=== PATIENT | male | born 1990 | race Caucasian/White ===

== ENCOUNTER 2022-01-16 15:23 | Outpatient (CLI) | payer BC, SELFPAY ==
[2022-01-16 21:47] LABS: Chloride* 105 mmol/L (96-114); Sodium* 140 mmol/L (135-149)
[2022-01-16 21:48] LABS: Potassium* 5.6 mmol/L (3.6-5.1)
[2022-01-16 21:50] LABS: Alanine Aminotransferase* 21 U/L (4-50); Alkaline Phosphatase* 91 U/L (40-150); Aspartate Amino Transferase* 21 U/L (12-35); Bilirubin Total* 0.2 mg/dL (0.1-1.5); Blood Urea Nitrogen* 18 mg/dL (5-24); Carbon Dioxide* 22 mmol/L (20-32); Estimated Glomerular Filt Rate 103 ml/min; Glucose* 116 mg/dL (60-115); Total Protein* 7.4 g/dL (6.0-8.3)
[2022-01-16 21:51] LABS: Calcium* 9.9 mg/dL (8.4-10.6)
[2022-01-16 22:22] LABS: TSH With Reflex to FT4* 0.925 uIU/mL (0.270-4.200)
[2022-01-20 16:55] LABS: Sex Hormone Binding Globulin 50 nmol/L (17-56); Testosterone, Adult Male 463 ng/dL (300-1080); Testosterone, Free Calculation 68 pg/mL (47-244); Testosterone, Percentage Free 1.5 % (1.6-2.9)
== END 2022-01-16 15:24 | disposition home or self-care (01) ==
PROVIDERS: PCP Family Medicine; Visit Provider Family Medicine
DX: Z00.00 Encounter for general adult medical examination without abnormal findings (principal); E07.9 Disorder of thyroid, unspecified; R68.82 Decreased libido; F41.9 Anxiety disorder, unspecified
CPT/HCPCS: 80053; 84270; 84402; 84403; 84443

== ENCOUNTER 2023-02-12 10:25 | Outpatient (CLI) | payer BC, SELFPAY | END 2023-02-12 10:26 | disposition home or self-care (01) | LOC: NFLDREF 02-16 12:17 | PROVIDERS: PCP Family Medicine; Referring Provider Family Medicine; Visit Provider Family Medicine | DX: I10 Essential (primary) hypertension (principal); R73.9 Hyperglycemia, unspecified; F41.9 Anxiety disorder, unspecified; F90.9 Attention-deficit hyperactivity disorder, unspecified type | CPT/HCPCS: 80053; 80061; 84443 ==

== ENCOUNTER 2024-04-06 09:39 | Outpatient (CLI) | payer BC, SELFPAY | END 2024-04-06 09:40 | disposition home or self-care (01) | PROVIDERS: PCP Physician Assistant Medical; Visit Provider Physician Assistant Medical | DX: I10 Essential (primary) hypertension (principal); Z13.6 Encounter for screening for cardiovascular disorders; Z13.29 Encounter for screening for other suspected endocrine disorder | CPT/HCPCS: 80053; 80061; 84443 ==

== ENCOUNTER 2025-04-23 14:59 | Outpatient (CLI) | payer BC, SELFPAY | END 2025-04-23 15:00 | disposition home or self-care (01) | LOC: NFLDREF 04-28 17:07 | PROVIDERS: PCP Physician Assistant Medical; Referring Provider Physician Assistant Medical; Visit Provider Physician Assistant Medical | DX: I10 Essential (primary) hypertension (principal); F90.0 Attention-deficit hyperactivity disorder, predominantly inattentive type | CPT/HCPCS: 80053; 80061; 84443 ==